=== PATIENT | male | born 1975 | race African-American/Black ===

== ENCOUNTER 2018-12-01 19:48 | Emergency (ER) | payer MEDICAID ==
[~2018-12-01] VITALS: Ht 177.8 cm; Wt 81.0 kg
[2018-12-01] MEDS ORDERED: IBUPROFEN 600MG TABLET PO ONE (20:30)
[2018-12-01] MEDS ORDERED: AZITHROMYCIN 500 MG TABLET PO ONE ×2 (21:45→22:00)
[2018-12-01 22:06] VITALS: BP 132/76
== END 2018-12-01 22:06 | disposition home or self-care (01) ==
LOC: ER 19:48
DX: J18.9 Pneumonia, unspecified organism (principal); F17.200 Nicotine dependence, unspecified, uncomplicated
CPT/HCPCS: 71045; 87804; 99284

== ENCOUNTER 2023-01-21 19:23 | Emergency (ER) | payer MEDICAID, OTHER ==
[~2023-01-21] VITALS: Ht 167.6 cm; Wt 77.5 kg
[2023-01-21 21:15] VITALS: BP 133/100
[2023-01-21] MEDS ORDERED: MORPHINE SULFATE 10 MG/ML CPJ IM ONE (21:15)
[2023-01-21] MEDS ORDERED: LIDOCAINE HCL/EPINEPHRINE 1%-EPI 1:100,000 20 ML VIAL INFIL ONE (21:15)
[2023-01-21] MEDS ORDERED: BACITRACIN ZINC OINT UDPKT TOP ONE (21:15)
[2023-01-21] MEDS ORDERED: LIDOCAINE HCL/EPINEPHRINE 1%-EPI 1:100,000 30 ML VIAL INFIL NR (22:00)
== END 2023-01-22 00:37 | disposition home or self-care (01) ==
LOC: ER 19:23
DX: S50.311A Abrasion of right elbow, initial encounter (principal); W18.39XA Other fall on same level, initial encounter; Y93.89 Activity, other specified; Y92.89 Other specified places as the place of occurrence of the external cause; Y99.8 Other external cause status
CPT/HCPCS: 12002; 96372; 99283; J2270; J3490